=== PATIENT | male | born 1955 | race Caucasian/White ===

== ENCOUNTER 2019-05-09 21:11 | Emergency (ER) | payer OTHER ==
[~2019-05-09] VITALS: Ht 165.1 cm; Wt 73.9 kg
[~2019-05-09 21:11] MED LIST: CIPR500T4 PO
[2019-05-09 21:16] VITALS: Ht 165.1 cm; Wt 73.9 kg
[2019-05-09] MEDS ORDERED: ALBUTEROL 0.083% (NEB) 2.5 MG/3 ML AMP HHN STA (21:46)
[2019-05-09] MEDS ORDERED: IPRATROPIUM (NEB) 0.5 MG/2.5 ML AMP HHN ONE (22:00)
[2019-05-09 22:42] VITALS: BP 110/67; PULSE 88; RESP 16
== END 2019-05-09 22:45 | disposition home or self-care (01) ==
LOC: E/R 21:11
DX: R33.9 Retention of urine, unspecified (principal); R06.2 Wheezing
CPT/HCPCS: 81001; 87086; 94664